=== PATIENT | male | born 1980 | race African-American/Black ===

== ENCOUNTER 2016-06-23 18:28 | Emergency (ER) ==
[2016-06-23] MEDS ORDERED: ZOFRAN ODT PO ONE (21:21)
--- NOTE | 2016-06-23 21:38 | PROVIDER DOCUMENTATION ---
HPI-Abdominal Pain/GI Problem - General Chief Complaint: Nausea/Vomiting Stated Complaint: NAUSEA/VOMITING/HEADACHE Time Seen by Provider: 06/23/16 21:21 Allergies/Adverse Reactions: Patient Allergies Allergy/AdvReac Type Severity Reaction Status Date / Time No Known Allergies Allergy Verified 11/16/14 12:47 Home Medications: Home Medication List Medication Instructions Recorded Confirmed Last Taken Type Divalproex Sodium [Depakote] 250 mg PO BID 11/16/14 11/16/14 06/23/16 History Escitalopram Oxalate [Lexapro] 10 mg PO DAILY 11/16/14 11/16/14 06/23/16 History Levetiracetam [Keppra] 1,000 mg PO BID 11/16/14 11/16/14 06/23/16 History Trazodone [Desyrel] 25 mg PO QHS 06/23/16 06/23/16 Unknown History Past History - Adult - PAST MEDICAL HISTORY-ADULT Major Childhood Illnesses: reports: denies history Cardiovascular: reports: denies history Respiratory: reports: denies history Gastrointestinal: reports: denies history Genitourinary: reports: denies history Musculoskeletal: reports: chronic pain (back) Neurological: reports: Seizures/Epilepsy Psychiatric: reports: denies history Endocrine/Immune: reports: denies history - PRIOR SURGERIES/PROCEDURES Surgical/Procedure History: reports: other (pyloric stenosis) - PRIOR HOSPITALIZATIONS Prior Hospitalizations: reports: for similar symptoms - IMMUNIZATION STATUS Childhood Immunizations: UTD Flu Vaccine: See Nurse Assessment - FAMILY HISTORY Family History: reviewed, not pertinent
--- NOTE | 2016-06-23 21:38 | PROVIDER DOCUMENTATION ---
HPI-Abdominal Pain/GI Problem - General Source: patient - History of Present Illness-ABD Nature of Presenting Problems: 35 year old M presents to the ED with a cc of epigastric ABD pain, nausea, and vomiting. PT states that it has been intermittent. PT states that he has been having shoulder pain and shortness of breath. PT states that he woke up weak and with a headache. PT believes he may have had a seizure last night during his sleep. Abdominal Pain Onset Location: reports: epigastric Pain Radiation: reports: shoulder, chest Quality of Pain: reports: burning Severity in ED: reports: mild Onset/Duration: reports: this morning Timing: reports: still present Activities at Onset: reports: none Associated Symptoms: reports: diarrhea, headaches, nausea, shortness of breath, vomiting, weakness Dark Stools Present?: reports: none noticed Rectal Bleeding: reports: none # of Diarrhea Episodes: 4 # of Vomiting Episodes: 6 Bruising or Bleeding Gums?: No Similar Symptoms Previously?: No Recently seen or treated by another doctor?: No <Shara Ramírez - Last Filed: 06/23/16 22:47> - General Source: patient <Peace Finn - Last Filed: 06/24/16 00:35> - General Chief Complaint: Nausea/Vomiting Stated Complaint: NAUSEA/VOMITING/HEADACHE Time Seen by Provider: 06/23/16 21:21 Allergies/Adverse Reactions: Patient Allergies Allergy/AdvReac Type Severity Reaction Status Date / Time No Known Allergies Allergy Verified 11/16/14 12:47 Home Medications: Home Medication List Medication Instructions Recorded Confirmed Last Taken Type Divalproex Sodium [Depakote] 250 mg PO BID 11/16/14 11/16/14 06/23/16 History Escitalopram Oxalate [Lexapro] 10 mg PO DAILY 11/16/14 11/16/14 06/23/16 History Levetiracetam [Keppra] 1,000 mg PO BID 11/16/14 11/16/14 06/23/16 History Trazodone [Desyrel] 25 mg PO QHS 06/23/16 06/23/16 Unknown History Dicyclomine [Bentyl] 20 mg PO 4XDAY PRN PRN #20 capsule 06/24/16 Unknown Rx Omeprazole 20 mg PO DAILY #14 capsule. 06/24/16 Unknown Rx Ondansetron [Zofran] 4 mg PO Q6H PRN PRN #20 tablet 06/24/16 Unknown Rx Review of Systems - Adult - REVIEW OF SYSTEMS - ADULT Constitutional: denies: chills, fever Eyes: reports: no symptoms reported Ears, Nose, Mouth & Throat: denies: ear pain, throat pain Cardiovascular: reports: chest pain. denies: palpitations Respiratory: reports: shortness of breath. denies: cough Gastrointestinal: reports: abdominal pain, diarrhea, nausea, vomiting Genitourinary: reports: no symptoms reported Musculoskeletal: reports: no symptoms reported Integumentary: denies: skin sores/ulcer, skin thickening Neurological: reports: headache/migraines. denies: dizziness/vertigo Psychiatric: reports: no symptoms reported Endocrine: reports: no symptoms reported Hematologic/Lymphatic: reports: no symptoms reported Allergic/Immunologic: reports: no symptoms reported All Other Systems: Reviewed and Negative <Shara Ramírez - Last Filed: 06/23/16 22:47> Past History - Adult - PAST MEDICAL HISTORY-ADULT Review of Records: reports: Nursing Assessment Review, Medications Reviewed Major Childhood Illnesses: reports: denies history Musculoskeletal: reports: chronic pain Neurological: reports: Seizures/Epilepsy - PRIOR SURGERIES/PROCEDURES Surgical/Procedure History: reports: other (pyloric stenosis) - IMMUNIZATION STATUS Childhood Immunizations: See Nurse Assessment Flu Vaccine: See Nurse Assessment - SOCIAL HISTORY Smoking: cigarettes, less than 1 pack/day Provider spent 3-5 mins advising pt. on dangers of tobacco.: Discussed manners to quit use, and f/u contacts for add'l counseling. Substance Use: marijuana Alcohol Use Frequency: never <Shara Ramírez - Last Filed: 06/23/16 22:47> - PAST MEDICAL HISTORY-ADULT Major Childhood Illnesses: reports: denies history Cardiovascular: reports: denies history Respiratory: reports: denies history Gastrointestinal: reports: denies history Genitourinary: reports: denies history Musculoskeletal: reports: chronic pain (back) Neurological: reports: Seizures/Epilepsy Psychiatric: reports: denies history Endocrine/Immune: reports: denies history - PRIOR SURGERIES/PROCEDURES Surgical/Procedure History: reports: other (pyloric stenosis) - PRIOR HOSPITALIZATIONS Prior Hospitalizations: reports: for similar symptoms - IMMUNIZATION STATUS Childhood Immunizations: UTD Flu Vaccine: See Nurse Assessment - FAMILY HISTORY Family History: reviewed, not pertinent <Peace Finn - Last Filed: 06/24/16 00:35> Physical Exam-General - PHYSICAL EXAM-ADULT Initial Vital Signs Reviewed: Yes - CONSTITUTIONAL General Appearance: appears well, alert, no apparent distress - RESPIRATORY Respiratory: chest non-tender, lungs clear, normal breath sounds - CARDIOVASCULAR Cardiovascular: normal peripheral pulses, regular rate, rhythm, no edema - GASTROINTESTINAL (ABDOMEN) Abdominal Exam: normal bowel sounds, non tender, soft - MUSCULOSKELETAL Extremity: normal inspection - SKIN Integumentary: normal color, normal turgor, warm/dry - PSYCHIATRIC Psych/Mental Status: normal mood/affect, normal thought content, normal thought process, oriented x 3 <Shara Ramírez - Last Filed: 06/23/16 22:47> Progress - EKG 1 Time of EKG reading by physician:: 22:03 EKG Read and Signed by:: Dale Casillas EKG Interpretation (*Must complete 3 of following elements*): Normal Rate: 88 Rhythm: NSR [place]: normal <Shara Ramírez - Last Filed: 06/23/16 22:47> - REASSESSMENT Reassessment #1 Time Reassessed: 23:21 (No further vomiting in ER. Patient feeling some better after medication.) Status: improving Reassessment #2 Time Reassessed: 00:33 (Patient continues to feel better. Sleeping comfortably and easily aroused from sleep. No further vomiting or diarrhea. Discussed lab abnormalities with Dr. Casillas. Will discharge home with symptomatic treatment. Strict return precautions given to return to ER if unable to tolerate PO or new/ worsening symptoms occur.) - XRAY 1 XRAY Study: Chest, Abdomen XRAY Interpretation: nad <Peace Finn - Last Filed: 06/24/16 00:35> Departure <Shara Ramírez - Last Filed: 06/23/16 22:47> - Departure Time of Disposition Order: 00:31 Certified Medical Emergency: Emergent <Peace Finn - Last Filed: 06/24/16 00:35> - Departure DIAGNOSIS: Nausea vomiting and diarrhea Disposition: HOME 01 Condition: Good Additional Instructions: ED Follow Up Instructions: You have been treated by a care provider in the Emergency Department. These instructions are being provided to you so you can have an understanding of how to care for yourself upon discharge. Upon discharge from the Emergency Department, you are responsible for making arrangements for follow-up care by a physician of your choice. Take all prescribed medications as directed. Return to the Emergency Department immediately for any new or worsening symptoms. You may call the Physician Referral phone number at [phone] to obtain a list of Physicians who are taking new patients. Prescriptions: Dicyclomine [Bentyl] 20 mg PO 4XDAY PRN PRN #20 capsule PRN Reason: Cramps Omeprazole 20 mg PO DAILY #14 capsule. Ondansetron [Zofran] 4 mg PO Q6H PRN PRN #20 tablet PRN Reason: Nausea Attestation - Scribe Verification/Attestation Scribe:: Shara Ramírez Acting as Scribe for:: Peace Finn Scribe documention review:: This chart was documented by a scribe and accurately reflects the service the provider performed and the decisions made by the provider. <Shara Ramírez - Last Filed: 06/23/16 22:47> Physician Attestation - Physician Attestation I, the provider, attest to the following statement:: Peace Finn Physician documentation Attestation:: This documentation recorded by the scribe accurately reflects the service I personally performed and the decisions made by me. <Shara Ramírez - Last Filed: 06/23/16 22:47>
[2016-06-23] MEDS ORDERED: G.I. COCKTAIL PO ONE (21:45)
[2016-06-23] MEDS ORDERED: NS 1,000 ML IV ONE (21:45)
[2016-06-23] MEDS ORDERED: SODIUM CHLORIDE 0.9% INJ ONE (21:46)
[2016-06-23] MEDS ORDERED: PROTONIX IV ONE (21:46)
[2016-06-23 21:47] LABS: MANUAL DIFF NEEDED? NO
[2016-06-23 21:56] LABS: BASO% 0.2 % (0.0-0.8); EOS# 0.14 X1000 (0.0-0.7); EOS% 1.2 % (0.0-10.0); HEMATOCRIT 47.9 % (42.0-52.0); HEMOGLOBIN 16.7 g/dL (14.0-18.0); IMM GRAN# 0.02 X1000 (0.0-0.04); IMM GRAN% 0.2 % (0.0-0.5); LYMPH% 29.9 % (20.5-51.1); MCH 31.7 PG (27-31); MCHC 34.9 g/dL (33-37); MCV 91.1 FL (81-99); MONO# 1.26 X1000 (0.11-0.59); MONO% 11.1 % (1.7-9.3); MPV 9.3 FL (7.4-10.4); NEUT% 57.4 % (42.2-75.2); PLT 353 X1000 (130-400); RBC 5.26 XMIL (4.7-6.1)
[2016-06-23] MEDS ORDERED: PROTONIX ONE (22:00)
[2016-06-23 22:20] LABS: ALBUMIN 4.2 g/dL (3.5-5.0); CALCIUM 9.6 mg/dL (8.8-10.2); TOTAL BILIRUBIN 0.5 mg/dL (0.20-1.00); TOTAL PROTEIN 6.9 g/dL (6.3-8.3)
[2016-06-23 22:58] LABS: URINE SOURCE CLEAN CATCH
[2016-06-23 23:20] LABS: BILIRUBIN URINE NEGATIVE (NEGATIVE); BLOOD URINE 1+ (NEGATIVE); CLARITY SL. CLOUDY (CLEAR); COLOR YELLOW; GLUCOSE URINE NEGATIVE (NEGATIVE); LEUKOCYTES URINE TRACE (NEGATIVE); NITRITE URINE NEGATIVE (NEGATIVE); PROTEIN URINE 1+(30 mg/dL) mg/dL (NEGATIVE); SP GRAVITY URINE 1.025; UROBILINOGEN URINE 4+(12 mg/dL)
[2016-06-23 23:30] LABS: URINE CULTURE PL NEEDED? YES; URINE EPITHELIAL CELLS <10 /HPF (<10); URINE RBC <10 /HPF (<10); URINE WBC <10 /HPF (<10)
[2016-06-24 00:59] VITALS: BP 108/71
--- NOTE | 2016-06-24 05:43 | EKG Report ---
Test Performed on : 06/23/2016 10:03:14 PM Test Reason : cp Blood Pressure : / mmHG Vent. Rate : 088 BPM Atrial Rate : 088 BPM P-R Int : 154 ms QRS Dur : 082 ms QT Int : 368 ms P-R-T Axes : 069 066 044 degrees QTc Int : 445 ms Normal sinus rhythm. Normal ECG When compared with ECG of 23-SEP-2014 02:25, Vent. rate has increased BY 35 BPM Unconfirmed Result
--- NOTE | 2016-06-24 08:28 | Diag Imaging Result Document ---
PROCEDURE NAME: FLAT/UPRIGHT ABD/1 VIEW CHEST - 06/23/2016 FLAT AND UPRIGHT ABDOMEN: FINDINGS: There is a nonspecific bowel gas pattern with a fair amount of stool in the right colon. There is no evidence of gastric or small bowel dilatation and no evidence of organomegaly or mass is present. IMPRESSION: Nonspecific abdomen. PA CHEST: FINDINGS: There are some granulomatous nodes in the left hilum. The heart size and pulmonary vascularity are within normal limits. The lungs are essentially clear and unchanged since 04/05/2012. IMPRESSION: No acute disease.
== END 2016-06-24 00:58 | disposition home or self-care (01) ==
LOC: P.ED 18:28
DX: R11.2 Nausea with vomiting, unspecified (principal); R19.7 Diarrhea, unspecified; R10.13 Epigastric pain; M25.519 Pain in unspecified shoulder; R06.02 Shortness of breath; R51 Headache; R53.1 Weakness; R07.9 Chest pain, unspecified; G89.29 Other chronic pain; M54.9 Dorsalgia, unspecified; R56.9 Unspecified convulsions; F17.210 Nicotine dependence, cigarettes, uncomplicated; Z79.899 Other long term (current) drug therapy; Z71.6 Tobacco abuse counseling
CPT/HCPCS: 74022; 80053; 81001; 82550; 83690; 84484; 85025; 87088; 93005; 96361; 96374; C9113; J7030; S0164

== ENCOUNTER 2016-10-19 05:38 | Inpatient (IN) ==
[2016-10-19] MEDS ORDERED: VALIUM ONE (06:17)
[2016-10-19] MEDS ORDERED: KEFZOL 2 GM/D5W 2 GM/50 ML IVPB ONE (06:17)
[2016-10-19] MEDS ORDERED: LR 1,000 ML ONE ×2 (06:17→09:24)
[2016-10-19] MEDS ORDERED: PEPCID ONE (06:23)
[2016-10-19] MEDS ORDERED: REGLAN ONE (06:23)
[2016-10-19] MEDS ORDERED: DIPRIVAN 1% ONE (06:37)
[2016-10-19] MEDS ORDERED: QUELICIN (DOSE) ONE (06:38)
[2016-10-19] MEDS ORDERED: NORCURON ONE (06:38)
[2016-10-19] MEDS ORDERED: SODIUM CHLORIDE 0.9% 10 ML ONE (06:38)
[2016-10-19] MEDS ORDERED: XYLOCAINE-MPF 2% ONE (06:38)
[2016-10-19] MEDS ORDERED: VERSED ONE (07:13)
[2016-10-19] MEDS ORDERED: DECADRON ONE (07:35)
[2016-10-19] MEDS ORDERED: ZOFRAN ONE (07:35)
[2016-10-19] MEDS ORDERED: FENTANYL ONE ×2 (07:36→08:55)
[2016-10-19 08:19] LABS: URINE MICRO REVIEW NEEDED? NO; URINE SOURCE CATH
[2016-10-19 08:23] LABS: BILIRUBIN URINE NEGATIVE (NEGATIVE); BLOOD URINE SMALL (NEGATIVE); COLOR YELLOW; GLUCOSE URINE NEGATIVE (NEGATIVE); LEUKOCYTES URINE TRACE (NEGATIVE); NITRITE URINE NEGATIVE (NEGATIVE); PH URINE 5.5; PROTEIN URINE TRACE mg/dL (NEGATIVE); SP GRAVITY URINE 1.025; TURBIDITY URINE CLEAR (CLEAR); UR EPITHELIAL CELLS <10 /HPF (<10); URINE BACTERIA NEGATIVE /HPF; URINE RBC <10 /HPF (<10); URINE WBC <10 /HPF (<10); UROBILINOGEN URINE NORMAL (NORMAL)
[2016-10-19] MEDS ORDERED: XYLOCAINE 1% ONE (08:26)
[2016-10-19] MEDS ORDERED: MARCAINE 0.25% PF/EPI 1:200,000 ONE (08:27)
[2016-10-19] MEDS ORDERED: NEOSTIGMINE ONE (08:42)
[2016-10-19] MEDS ORDERED: ROBINUL ONE (08:42)
[2016-10-19] MEDS: DILAUDID ONE ×3 (09:09→09:19)
[2016-10-19] MEDS ORDERED: DILAUDID ONE (09:42)
[2016-10-19] MEDS ORDERED: OFIRMEV 1000 MG/ISOTONIC SOLN 1,000 MG/100 ML BOTTLE ONE (09:42)
--- NOTE | 2016-10-19 10:02 | OPERATIVE NOTE ---
PROCEDURE DATE: 10/19/2016 PREOPERATIVE DIAGNOSIS: Peripancreatic mass. POSTOPERATIVE DIAGNOSIS: Peripancreatic mass. PROCEDURE PERFORMED: Exploratory laparotomy with resection of lesser sac mass. COMPLICATIONS: None. ESTIMATED BLOOD LOSS: 50 mL. ASSISTANTS: Dr. Mcdaniel was present from the skin incision to skin closure, retraction identification of abnormal anatomy, and resection of the mass. INDICATION: A 35-year-old male, who presented with epigastric abdominal pain, early satiety, nausea. CT scan showed multilobular cystic mass abutting the pancreas in the lesser sac. EUS confirmed this. Resection was indicated for palliative symptoms and diagnosis and treatment of this lesion. OPERATIVE FINDINGS: There is a multilobular cystic mass with septations abutting the pancreas, but separate from the pancreas extending through the lesser sac and was visualized through the lesser omentum. OPERATIVE NOTE: Risks, benefits, alternatives discussed with the patient. He consented to the procedure. He was seen preoperatively and the procedure performed was confirmed. He was taken to the operating room, placed supine position, general anesthesia induced without complication. All bony prominence padded. Arms were tucked. NG tube and [place] catheter was placed. The abdomen is prepped with chlorhexidine solution and draped in the usual fashion. After a time-out was performed, a left upper quadrant subcostal incision was made, carried down through the subcutaneous tissue down to the level of the fascia. The muscle was divided. The peritoneum was elevated and entered in a controlled fashion. After this, we inspected the abdomen. [place] the liver; there are no lesions here. There is no evidence of metastatic disease. I divided the falciform ligament with vicryl suture. We placed upper hand retractor. Then we entered the lesser sac the greater omentum off the transverse colon, and we did this widely to obtain good exposure. After this we realized that this cystic lesion easily from the pancreas and extended up to and was more adherent to the lesser curve and the lesser omentum of the stomach. As such, we placed the stomach back in neutral position. We then opened the lesser sac through the lesser omentum and circumferentially dissected out the mass using a combination of electrocautery and the LigaSure device. We did this successfully without rupturing the lesion. There are some feeding veins that were divided. No named vessels of the stomach required division here. Resected this mass in its entirety. We passed it off the field. We irrigated the wound, confirmed hemostasis. Placed omentum in the colon back in appropriate position. We removed the retractor system. We then closed the posterior fascia using a running #1 looped PDS. First we closed the posterior fascia and then transitioned to this anterior fascia and closed this. Irrigated the superficial wound, closed the skin with surgical clips. Tolerated procedure well with no identified complication. Counts correct x2. He was awoken and transferred to PACU in good condition. Attempted to reach family , but they are unavailable. cc: Deven Barr MD [facility]
[2016-10-19] MEDS ORDERED: ZOFRAN IV PRN (10:32)
[2016-10-19] MEDS ORDERED: SODIUM CHLORIDE 0.9% INJ SCH (10:32)
[2016-10-19] MEDS ORDERED: PROTONIX IV SCH (10:32)
[2016-10-19] MEDS: LEXAPRO PO SCH (11:18)
[2016-10-19] MEDS: DEPAKOTE PO SCH ×2 (11:18→21:15)
[2016-10-19] MEDS: LR 1,000 ML IV SCH ×2 (11:18→17:42)
[2016-10-19] MEDS: REGLAN IV SCH ×4 (11:18→23:11)
[2016-10-19] MEDS: KEPPRA PO SCH ×2 (11:18→21:14)
[2016-10-19] MEDS: PERIDEX MT SCH ×2 (11:19→23:11)
[2016-10-19] MEDS: DILAUDID IV PRN ×3 (14:38→21:13)
[2016-10-19] MEDS: OFIRMEV 1000 MG/ISOTONIC SOLN 1,000 MG/100 ML BOTTLE IV SCH ×2 (16:09→21:14)
[2016-10-19] MEDS: DESYREL PO SCH (21:15)
[2016-10-20] MEDS: LR 1,000 ML IV SCH ×5 (00:30→17:15)
[2016-10-20] MEDS: DILAUDID IV PRN ×3 (02:34→13:52)
[2016-10-20] MEDS: REGLAN IV SCH ×4 (04:23→22:34)
[2016-10-20] MEDS: OFIRMEV 1000 MG/ISOTONIC SOLN 1,000 MG/100 ML BOTTLE IV SCH ×4 (04:23→22:36)
[2016-10-20 05:59] LABS: MANUAL DIFF NEEDED? NO
[2016-10-20 06:11] LABS: BASO% 0.1 % (0.0-0.8); EOS# 0.02 X1000 (0.0-0.7); EOS% 0.1 % (0.0-10.0); HEMATOCRIT 45.9 % (42.0-52.0); HEMOGLOBIN 16.4 g/dL (14.0-18.0); IMM GRAN# 0.03 X1000 (0.0-0.04); IMM GRAN% 0.2 % (0.0-0.5); LYMPH# 2.32 X1000 (1.2-3.4); LYMPH% 15.6 % (20.5-51.1); MCH 32.2 PG (27-31); MCHC 35.7 g/dL (33-37); MONO# 1.35 X1000 (0.11-0.59); MONO% 9.1 % (1.7-9.3); MPV 9.7 FL (7.4-10.4); NEUT% 74.9 % (42.2-75.2); PLT 331 X1000 (130-400)
[2016-10-20 06:44] LABS: AGAP 9; BUN 7 mg/dL (8-22); CALCIUM 8.1 mg/dL (8.8-10.2); CHLORIDE 102 mmol/L (98-107); COSMO 270; MAGNESIUM 1.9 mg/dL (1.5-2.7); POTASSIUM 4.1 mmol/L (3.5-5.1); SODIUM 137 mmol/L (136-145); TCO2 26 mmol/L (25-35)
--- NOTE | 2016-10-20 09:06 | PROGRESS NOTE ---
DATE: 10/20/2016 SUBJECTIVE: Feels well. He has had a little bit of pain and nausea. He was voiding after his [place] was out. OBJECTIVE: Vital Signs: No fevers. No tachycardia. Blood pressure 121/65, oxygen saturations high 90s on 2 L. General: He is alert, in no acute distress. Abdomen: Soft, appropriately tender. Incision is clean, dry, and intact. NG tube has got minimal output. Laboratory Data: Reviewed his labs: White count is 14, hematocrit 45. Creatinine 0.8. ASSESSMENT AND PLAN: This is a 35-year-old male who status post resection of a peripancreatic mass. He is doing well. We will remove his NG tube. [place] is already out and he is voiding. Increase his mobilization today. We will advance his diet with return of bowel function. Stick to ice chips now. He is on Lovenox and proton pump inhibitor. cc: Deven Barr MD
[2016-10-20] MEDS: PERIDEX MT SCH ×2 (09:37→22:34)
[2016-10-20] MEDS: KEPPRA PO SCH ×2 (09:38→22:34)
[2016-10-20] MEDS: LOVENOX SUBQ SCH (09:38)
[2016-10-20] MEDS: DEPAKOTE PO SCH ×2 (09:38→22:35)
[2016-10-20] MEDS: LEXAPRO PO SCH (09:38)
[2016-10-20] MEDS: NORCO-7.5 PO PRN ×2 (10:09→16:23)
[2016-10-20] MEDS: ROBAXIN 500 MG in NS 50 ML IV SCH ×3 (11:06→22:36)
[2016-10-20] MEDS ORDERED: NEXIUM IV SCH (21:00)
[2016-10-20] MEDS: DESYREL PO SCH (22:34)
[2016-10-21] MEDS: LR 1,000 ML IV SCH ×3 (02:31→09:40)
[2016-10-21] MEDS: OFIRMEV 1000 MG/ISOTONIC SOLN 1,000 MG/100 ML BOTTLE IV SCH ×3 (04:09→15:55)
[2016-10-21] MEDS: REGLAN IV SCH ×3 (04:09→15:56)
[2016-10-21] MEDS: ROBAXIN 500 MG in NS 50 ML IV SCH ×2 (04:09→10:17)
[2016-10-21] MEDS: LOVENOX SUBQ SCH (08:20)
[2016-10-21] MEDS: PERIDEX MT SCH (08:20)
[2016-10-21] MEDS: LEXAPRO PO SCH (08:20)
[2016-10-21] MEDS: KEPPRA PO SCH (08:20)
[2016-10-21] MEDS: DEPAKOTE PO SCH (08:20)
[2016-10-21] MEDS: NORCO-7.5 PO PRN (08:21)
[2016-10-21 11:15] VITALS: BP 125/70
[2016-10-21] MEDS ORDERED: SALINE LOCK IV FLUID XX ONE (11:56)
--- NOTE | 2016-10-22 05:31 | DISCHARGE SUMMARY ---
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 He underwent a resection of this on October 19. For details, please see dictated operative note. Postoperatively, he was admit to my service. An NG tube and [place] catheter were removed on day 1. His diet was gradually advanced over the next 24 hours. He tolerated this well. He had return of bowel function. He was voiding, walking and pain control with his oral medicines alone and he was felt safe for discharge home. DISCHARGE INSTRUCTIONS: He will return to my office in 7-10 days to remove the tad. He is to remove his dressing tomorrow and begin showering daily but not submerge his wound. He is not to lift anything heavier than 10 pounds. MEDICATIONS: He can continue his home medications. I gave him a prescription for [place], Colace, and Zofran if needed. DIET: Continue with a GI soft diet for the next several weeks to months with small frequent meals and gradually begin advancing this. DISPOSITION: Home to self-care. DISCHARGE CONDITION: Good. cc: Deven Barr MD
== END 2016-10-21 16:21 | disposition home or self-care (01) ==
LOC: SURHOLD 05:38 → 4N 10:14
PROVIDERS: ADMIT Surgery; ATTEND Surgery

== ENCOUNTER 2016-12-11 15:19 | Inpatient (IN) ==
[2016-12-11] MEDS ORDERED: NS 1,000 ML IV ONE (15:54)
[2016-12-11] MEDS ORDERED: ZOFRAN IV ONE (15:54)
[2016-12-11 16:47] LABS: MANUAL DIFF NEEDED? NO
[2016-12-11 16:52] LABS: BASO% 0.2 % (0.0-0.8); EOS% 1.2 % (0.0-10.0); HEMATOCRIT 46.4 % (42.0-52.0); HEMOGLOBIN 16.5 g/dL (14.0-18.0); LYMPH# 2.11 X1000 (1.2-3.4); MCH 31.4 PG (27-31); MCHC 35.6 g/dL (33-37); MCV 88.4 FL (81-99); MONO% 9.9 % (1.7-9.3); MPV 9.5 FL (7.4-10.4); NEUT% 62.7 % (42.2-75.2); PLT 376 X1000 (130-400); RBC 5.25 XMIL (4.7-6.1)
--- NOTE | 2016-12-11 17:11 | PROVIDER DOCUMENTATION ---
HPI-Abdominal Pain/GI Problem - General Chief Complaint: Abdominal Pain Stated Complaint: ABD PAIN/VOMITING Time Seen by Provider: 12/11/16 15:42 Allergies/Adverse Reactions: Patient Allergies Allergy/AdvReac Type Severity Reaction Status Date / Time No Known Allergies Allergy Verified 10/19/16 06:21 Home Medications: Home Medication List Medication Instructions Recorded Confirmed Last Taken Type Divalproex Sodium [Depakote] 250 mg PO BID 11/16/14 10/19/16 1 Month Ago History Escitalopram Oxalate [Lexapro] 10 mg PO DAILY 11/16/14 10/19/16 06/23/16 History Levetiracetam [Keppra] 1,000 mg PO BID 11/16/14 10/19/16 1 Month Ago History Trazodone [Desyrel] 25 mg PO QHS 06/23/16 10/19/16 Unknown History Docusate Sodium [Colace] 100 mg PO BID #60 capsule 10/21/16 Unknown Rx Hydrocodone/Acetaminophen [[place] 1 each PO Q6H PRN PRN #30 tablet 10/21/16 Unknown Rx 7.5-325 Tablet] Ondansetron HCl [Zofran] 4 mg PO Q4H PRN PRN #10 tablet 10/21/16 Unknown Rx - History of Present Illness-ABD Nature of Presenting Problems: complains of epigastric pain, n/v for two weeks. Had peripancreatic cyst removed by Dr. Barr in October. No fever, back pain, fever, cough, cp, dyspnea. Abdominal Pain Onset Location: reports: LUQ, epigastric Pain Radiation: reports: no radiation Quality of Pain: reports: aching Severity in ED: reports: moderate Onset/Duration: reports: other Timing: reports: getting worse Activities at Onset: reports: none Exposure to sick contacts?: No Modifying Factors: improves with: nothing Associated Symptoms: reports: fever/chills, nausea, vomiting. denies: anxiety, chest pain, constipation, cough, diarrhea, fatigue, headaches, loss of appetite , shortness of breath, sensory/motor loss, trouble walking Last BM: unsure Dark Stools Present?: reports: none noticed Rectal Bleeding: reports: none Rectal Pain: reports: none Emesis Description: reports: clear Bruising or Bleeding Gums?: No Similar Symptoms Previously?: No Recently seen or treated by another doctor?: No Review of Systems - Adult - REVIEW OF SYSTEMS - ADULT Constitutional: reports: no symptoms reported Eyes: reports: no symptoms reported Ears, Nose, Mouth & Throat: reports: no symptoms reported Cardiovascular: reports: no symptoms reported Respiratory: reports: no symptoms reported Gastrointestinal: reports: see HPI Genitourinary: reports: no symptoms reported Musculoskeletal: reports: no symptoms reported Integumentary: reports: no symptoms reported Neurological: reports: no symptoms reported Psychiatric: reports: no symptoms reported Endocrine: reports: no symptoms reported Hematologic/Lymphatic: reports: no symptoms reported Allergic/Immunologic: reports: no symptoms reported All Other Systems: Reviewed and Negative Past History - Adult - PAST MEDICAL HISTORY-ADULT Review of Records: reports: Old Records Reviewed, Nursing Assessment Review, Medications Reviewed, Social history reviewed & non-contributory. Major Childhood Illnesses: reports: denies history Cardiovascular: reports: denies history Respiratory: reports: denies history Gastrointestinal: reports: other Obstetrical/Gynecological: reports: denies history Genitourinary: reports: denies history Musculoskeletal: reports: chronic pain Neurological: reports: Seizures/Epilepsy Psychiatric: reports: denies history Endocrine/Immune: reports: denies history Other Conditions: reports: denies history - PRIOR SURGERIES/PROCEDURES Surgical/Procedure History: reports: other - PRIOR HOSPITALIZATIONS Prior Hospitalizations: reports: for similar symptoms - IMMUNIZATION STATUS Childhood Immunizations: UTD Flu Vaccine: See Nurse Assessment - FAMILY HISTORY Family History: reviewed, not pertinent - SOCIAL HISTORY Smoking: denies Substance Use: none/never Alcohol Use Frequency: never Living Situation: family Physical Exam-General - PHYSICAL EXAM-ADULT Initial Vital Signs Reviewed: Yes - CONSTITUTIONAL General Appearance: appears well, alert, no apparent distress - EYES Eyes: PERRL/EOMI, pink conjunctivae - HEAD, EARS, NOSE, MOUTH & THROAT HENMT: normocephalic/atraumatic - NECK Neck: supple - RESPIRATORY Respiratory: lungs clear, normal breath sounds - CARDIOVASCULAR Cardiovascular: normal peripheral pulses, regular rate, rhythm - GASTROINTESTINAL (ABDOMEN) Abdominal Exam: soft, tenderness (epigastric/LUQ s guarding.) - MUSCULOSKELETAL Back Exam: normal inspection Extremity: non-tender, normal gait. negative: calf tenderness - SKIN Integumentary: normal color, normal turgor, warm/dry - NEUROLOGIC Neurologic: grossly normal - PSYCHIATRIC Psych/Mental Status: normal mood/affect, oriented x 3 Progress - PLAN OF CARE/RESULTS Progress/Plan/Lab Results: Vital Signs - 8 hr 12/11/16 15:34 Pulse Rate 65 Respiratory Rate 16 Blood Pressure 127/62 O2 Sat by Pulse Oximetry 100 Laboratory Results - last 24 hr 12/11/16 15:29 WBC 8.11 RBC 5.25 Hgb 16.5 Hct 46.4 MCV 88.4 MCH 31.4 H MCHC 35.6 RDW Std Deviation 13.0 Plt Count 376 MPV 9.5 Immature Gran % (Auto) 0.0 Neut % (Auto) 62.7 Lymph % (Auto) 26.0 [place] % (Auto) 9.9 H Eos % (Auto) 1.2 Baso % (Auto) 0.2 Immature Gran # (Auto) 0.00 Neut # (Auto) 5.08 Lymph # (Auto) 2.11 [place] # (Auto) 0.80 H Eos # (Auto) 0.10 Baso # (Auto) 0.02 Orders Category Date Time Status Saline Loc NOW Care 12/11/16 15:[address] ABD/PELVIS W/PO AND IV CON [CT] Stat Exams 12/11/16 16:01 Ordered AMYLASE [CHEM] Stat Lab 12/11/16 15:29 Received CBC WITH ELECTRONIC DIFF [HEME] Stat Lab 12/11/16 15:29 Completed COMPREHENSIVE METABOLIC PANEL [CHEM] Stat Lab 12/11/16 15:29 Received LIPASE [CHEM] Stat Lab 12/11/16 15:29 Received URINALYSIS-1 [URINALYSIS] Stat Lab 12/11/16 16:53 Ordered 0.9% Sodium Chloride Inj [Ns] 1,000 ml Med 12/11/16 15:54 Discontinued IV 999 mls/hr Ondansetron [Zofran] Med 12/11/16 15:54 Discontinued 4 mg IV NOW ONE Result Diagrams: 12/11/16 15:29 12/11/16 15:29 - CT/MRI 1 CT Study: Abdomen, Pelvis Impression: See EMR Report (NAF) - CONSULTS/PCP/HOSPITALIST Notification #1 *Consult/PCP/Hospitalist*: Dr. Barr Time Discussed: 18:15 Consult Disposition: other (Pt seen and examined by Dr. Barr in ED. He wants patient admitted. Will admit to his service.) Departure - Departure Date of Disposition Decision: 12/11/16 Time of Disposition Decision: 18:36 DIAGNOSIS: Abdominal pain Qualifiers: Abdominal location: unspecified location Qualified Code(s): R10.9 - Unspecified abdominal pain Nausea & vomiting Qualifiers: Vomiting type: unspecified Vomiting Intractability: non-intractable Qualified Code(s): R11.2 - Nausea with vomiting, unspecified Disposition: ADMITTED INPATIENT 09 Certified Medical Emergency: Emergent Condition: Stable Referrals and Follow-Ups: None,PCP [Primary Care Provider] - - Critical Care Note This patient required my direct & personal management of CC.: No Attestation - Physician/ DORYS Attestation Patient care was provided by Advanced Practice Provider:: Yes Advanced Practice Provider:: Efren Gore Advanced Practice Provider documentation review:: The Mid-level provider documentation, treatment plan and medical decision making was reviewed by the physician who agrees with all treatment and medical decision making by the MLP. The physician spent face to face time with patient:: No Advanced Practice Provider documentation review:: Supervising physician onsite and consulted in the evaluation and care of this patient. The physician did not have a face to face encounter with the patient.
[2016-12-11 17:12] LABS: URINE SOURCE VOIDED
[2016-12-11 17:13] LABS: URINE MICRO REVIEW NEEDED? NO
[2016-12-11 17:13] LABS: AGAP 11; ALBUMIN 3.8 g/dL (3.5-5.0); ALKALINE PHOSPHATASE 37 U/L (32-122); AMYLASE 108 U/L (20-200); BUN 7 mg/dL (8-22); CALCIUM 8.7 mg/dL (8.8-10.2); CHLORIDE 103 mmol/L (98-107); COSMO 277; GOT 14 U/L (10-34); GPT 8 U/L (10-44); LIPASE 38 U/L (13-60); POTASSIUM 3.7 mmol/L (3.5-5.1); SODIUM 140 mmol/L (136-145); TCO2 26 mmol/L (25-35); TOTAL BILIRUBIN 0.74 mg/dL (0.20-1.00); TOTAL PROTEIN 6.3 g/dL (6.3-8.3)
[2016-12-11 17:17] LABS: BILIRUBIN URINE NEGATIVE (NEGATIVE); BLOOD URINE NEGATIVE (NEGATIVE); COLOR YELLOW; GLUCOSE URINE NEGATIVE (NEGATIVE); LEUKOCYTES URINE NEGATIVE (NEGATIVE); NITRITE URINE NEGATIVE (NEGATIVE); PROTEIN URINE TRACE mg/dL (NEGATIVE); SP GRAVITY URINE 1.027; TURBIDITY URINE CLEAR (CLEAR); UROBILINOGEN URINE 3 mg/dL (NORMAL)
[2016-12-11 17:18] LABS: UR EPITHELIAL CELLS <10 /HPF (<10); URINE BACTERIA NEGATIVE /HPF; URINE RBC <10 /HPF (<10)
--- NOTE | 2016-12-11 17:53 | Diag Imaging Result Doc PS360 ---
CT ABD/PELVIS W/PO AND IV CON - 12/11/2016 INDICATION: abd pain, recent peripancreatic surgery TECHNIQUE: A CT dose reduction protocol was used. COMPARISON: 08/16/2016 FINDINGS: The pancreatic tail cyst is no longer present. No free air or free fluid. No bowel obstruction or inflammation. The solid abdominal organs appear normal. Urinary bladder, prostate, and rectum are normal. The lung bases are clear. Bones are intact. IMPRESSION: No acute disease or complication. Electronically signed by Guero Mao 12/11/2016 5:51 PM
--- NOTE | 2016-12-11 19:05 | HISTORY AND PHYSICAL ---
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 His symptoms prior to that were abdominal pain, epigastric and nausea. He got initially better; however, he says over the last couple of weeks, he has had redevelopment of the symptoms. No fevers. Bowel function has been normal. Weight has been stable. MEDICAL HISTORY: He has seizure disorder. PAST SURGICAL HISTORY: 1. He has had an open resection of the lymphatic cyst from the lesser sac of his abdomen. 2. History of pyloric stenosis as an . SOCIAL HISTORY: Occasional tobacco and alcohol, but no heavy use. FAMILY HISTORY: History of cancer, but unclear what. REVIEW OF SYSTEMS: Ten point negative except for what is mentioned HPI. PHYSICAL EXAMINATION: Vital Signs: Temperature is 98.5, pulse in the 60s, blood pressure 127/62, oxygen saturation 100% on room air. General: He is alert, in no acute distress. HEENT: No cervical masses or scleral icterus. Cardiovascular: Normal rate and regular rhythm. Pulmonary: No increased work of breathing on room air. Abdomen: Soft, nontender, nondistended. His left subcostal incision is well healed without evidence of a hernia. Lymphatics: I do not feel any cervical or axillary lymphadenopathy. Musculoskeletal: Normal muscle tone throughout. Integument: Warm and dry without jaundice. Lower extremity exam is without edema and otherwise well perfused. Neurologic: Appropriate affect without any focal deficits. LABS: For the most part unremarkable. White count 8, hematocrit 46, platelets 376,000. Creatinine 0.9, glucose is 95. LFTs are normal. Lipase 38, amylase 105, albumin is 3.8. Urinalysis is negative for nitrites and leukocytes. CT scan of abdomen and pelvis overall unrevealing without any evidence of bowel obstruction or recurrent mass. No free air or free fluid. ASSESSMENT AND PLAN: A 35-year-old male, who has had chronic nausea and epigastric abdominal pain. He did have resection of a large lesser sac mass that was a benign cyst a couple months ago. He has had recurrent symptoms. I think at this point, will admit him. He appears quite uncomfortable and nauseated, for hydration and antiemetics intravenously. Most likely will need EGD in the near future to evaluate for ulcer disease. Does have a history of pyloric stenosis as a child and recent lesser sac operation, it is possible he has some gastroparesis type symptoms here. Will start him on Reglan and Carafate, and PPI in the meantime, and will monitor him. No plans for surgical intervention. Clear liquid diet tonight and will see how he does. cc: Deven Barr MD
[2016-12-11] MEDS ORDERED: PROTONIX IV ONE (19:18)
[2016-12-11] MEDS ORDERED: TYLENOL PO PRN (19:18)
[2016-12-11] MEDS ORDERED: ZOFRAN IV PRN (19:18)
[2016-12-11] MEDS ORDERED: SODIUM CHLORIDE 0.9% INJ ONE (19:18)
[2016-12-11] MEDS ORDERED: LR 1,000 ML IV ONE (19:18)
[2016-12-11] MEDS: CARAFATE LIQUID PO SCH (21:28)
[2016-12-11] MEDS: LOVENOX SUBQ SCH (21:28)
[2016-12-11] MEDS: REGLAN IV SCH (21:28)
[2016-12-11] MEDS: DESYREL PO SCH (21:29)
[2016-12-12] MEDS: REGLAN IV SCH ×4 (01:34→21:59)
[2016-12-12] MEDS: CARAFATE LIQUID PO SCH ×4 (01:35→21:59)
[2016-12-12] MEDS: LEXAPRO PO SCH (09:10)
[2016-12-12] MEDS: MIRALAX PO SCH (12:53)
[2016-12-12] MEDS: LEVAQUIN 500 MG/D5W 500 MG/100 ML IVPB IV SCH (12:54)
[2016-12-12] MEDS: PROTONIX IV SCH (12:55)
[2016-12-12] MEDS: SODIUM CHLORIDE 0.9% INJ SCH (12:55)
[2016-12-12] MEDS ORDERED: GOLYTELY PO ONE (14:00)
--- NOTE | 2016-12-12 17:40 | PROGRESS NOTE ---
DATE: 12/12/2016 SUBJECTIVE: Still feels full and nauseated, no vomiting. OBJECTIVE: Vital signs: No fevers, pulse 45, blood pressure 108/72, oxygen saturation 100% on room air. General: He is alert, no acute distress. Cardiovascular: Normal rate regular rhythm with some bradycardia intermittently. Abdomen: Soft, nontender, nondistended. Integument: Warm, dry without jaundice. LABS: No new labs this morning. ASSESSMENT AND PLAN: 35-year-old male status post resection lymphatic system lesser sac, continues to have some nausea, vomiting and reflux type symptoms, he needs an EGD and asked Dr. Simon to see him today and discuss this option, in the meantime will continue PPI, Reglan for possible gastroparesis type picture, Carafate pending his workup, I do not see any evidence postop complication or obstruction on the CT scan or his labs but will continue to monitor him pending his endoscopic evaluation tomorrow . cc: Deven Barr MD
[2016-12-12] MEDS: LOVENOX SUBQ SCH (18:56)
--- NOTE | 2016-12-12 19:40 | CONSULTATION ---
DATE OF CONSULTATION: 12/12/2016 REASON FOR CONSULTATION: Abdominal pain, nausea, constipation and recent resection of lymphatic cyst from the lesser sac of the abdomen. HISTORY OF PRESENT ILLNESS: Mr. Flores is a 35-year-old male who was admitted on 12/11/2016 with symptoms of abdominal pain, nausea and recent resection of a lymphatic cyst from the lesser sac of the abdomen. The patient has been complaining of abdominal pain going on for many months and he saw Dr. Barr in August this year. He had an EUS done at [facility] by Dr. Torrez which showed evidence of a cyst arising from possible pancreatic region. He got operated on in October [address] Barr and according to the operative report, the cyst was in the lesser sac and was not attached to the pancreas or the stomach and was able to be easily resected and pathology confirmed it as lymphatic cyst. Postoperatively he felt better for a few weeks and then started complaining of abdominal pain in the epigastric region along with bloating, nausea, constipation, and came to the hospital yesterday. He has been on previous MiraLAX in the past. He denies any vomiting blood or passing blood in the stools. He never had a colonoscopy in the past. His last upper scope was an EUS 3 months ago. PAST MEDICAL HISTORY: Seizure disorder and constipation, recent resection of lymphatic cyst from lesser sac. PAST SURGICAL HISTORY: 1. Myotomy of pyloric stenosis as a child. 2. Recent resection of lymphatic cyst from the lesser sac of abdomen in October [address] Barr. SOCIAL HISTORY: He smokes and drinks but has quit drinking recently. He still smokes. He denies illicit drugs. FAMILY HISTORY: Mother with history of peptic ulcer disease. REVIEW OF SYSTEMS: Denies any current fevers, rigors, chills, chest pain, shortness of breath, dyspnea at rest. Denies any genitourinary complaints. Denies history of vomiting or blood in the stools. MEDICATIONS AT HOME: 1. Depakote 250 mg p.o. b.i.d. 2. Keppra 1000 mg p.o. b.i.d. 3. Lexapro 10 mg daily. 4. Trazodone 25 mg at bedtime. ALLERGIES: No known drug allergies. MEDICATIONS IN THE HOSPITAL: Tylenol, Lovenox, Lexapro, Reglan, Zofran, sucralfate, trazodone, Protonix, Bisacodyl, MiraLAX. DIET: On a clear liquid diet. PHYSICAL EXAMINATION: Vital signs: Temperature of 99.3 degrees, pulse of 45 mg , respiratory rate 16, blood pressure 108/72, saturating 100% on room air. Body weight of 179 pounds 9.6 ounces. BMI 26.5 kg. General: Moderately built, lying in bed, in no distress. HEENT: No pallor. No icterus. Pupils equal and reactive to light. Neck: Supple. Chest: Clear Heart: Regular rate and rhythm. Abdomen: Soft, nontender, nondistended. Bowel sounds are present. No guarding or rebound. A healed scar noted in the abdomen. Extremities: No cyanosis, clubbing, edema. Neurologic: Alert, awake, oriented. LABS: Hemoglobin and hematocrit is 16.5 and 46.4. White count of 8.11, platelet count of 376,000. Sodium 140, potassium 3.7, chloride 103, bicarbonate, AG 11, BUN of 7, creatinine 19, glucose of 95, calcium is 8.7, total bilirubin is 0.74, AST 14, ALT 8, alkaline phosphatase 37, total protein 6.2, albumin of 3.8, amylase of 108, lipase of 38. Urine studies showed positive protein, 10-20 white cells. He had imaging of the abdomen and pelvis done on 12/11/2016 which showed the pancreatic tail cyst is no longer present. No free air or free fluid. No bowel obstruction or inflammation. The solid abdominal organs appear normal. Urinary, bladder, prostate, rectum are normal. Lung bases are clear. Bones are intact. IMPRESSION/PLAN: 1. Abdominal pain in the epigastric region/periumbilical region. 2. Nausea. 3. Constipation. 4. Recent infection of large lesser sac lymphatic cyst in October [address] Barr. 5. Possible urinary tract infection. RECOMMENDATIONS: 1. We will check a urine culture. 2. Start him on Levaquin once daily for possible urinary tract infection after urine culture has been collected. 3. We will start him on Protonix once or twice daily. 4. We will start him on Dulcolax and MiraLAX to help with the constipation. 5. We will schedule patient for EGD and colonoscopy tomorrow. In this regard, he will be on a clear liquid diet today and NPO tonight. we will give him GoLYTELY to prepare for colonoscopy. 6. Continue on Reglan, Carafate per the surgical team. 7. Further recommendations pending hospital course. I also counseled patient to quit using alcohol and smoking completely. Discussed the case with Dr. Barr. cc: MD Deven Montero MD MTDD
[2016-12-13] MEDS: CARAFATE LIQUID PO SCH ×4 (01:36→21:24)
[2016-12-13] MEDS: REGLAN IV SCH ×4 (01:36→21:24)
[2016-12-13] MEDS: SODIUM CHLORIDE 0.9% INJ SCH ×2 (01:40→15:09)
[2016-12-13] MEDS: PROTONIX IV SCH ×2 (01:40→15:09)
[2016-12-13] MEDS: DULCOLAX PR SCH (08:19)
[2016-12-13] MEDS: DESYREL PO SCH (08:19)
[2016-12-13] MEDS: MIRALAX PO SCH (08:26)
[2016-12-13] MEDS: LEXAPRO PO SCH (11:59)
[2016-12-13] MEDS ORDERED: DIPRIVAN 1% ONE (13:48)
--- NOTE | 2016-12-13 14:10 | PROGRESS NOTE ---
DATE: 12/13/2016 SUBJECTIVE: He feels better, a little bit, but still nauseated, still having some occasional discomfort. Not really tolerating much in the way of liquids currently. OBJECTIVE: Vital Signs: No fevers. Pulse has been in the 50s. Blood pressure 129/61, oxygen saturation 100% on room air. General: He is alert, in no acute distress. Abdomen: Soft, mildly tender throughout, nondistended. LABS: No new labs this morning. ASSESSMENT AND PLAN: A 35-year-old male with persistent chronic nausea, vomiting, intolerance to oral status post resection of a lesser sac lymphatic cyst. Dr. Simon is planning to scope him today. We will follow up these results. Make further plans going forward. In the meantime, will continue intravenous antiemetics and intravenous hydration, and will continue to follow his progress. cc: Deven Barr MD
[2016-12-13] MEDS ORDERED: FENTANYL ONE (14:18)
--- NOTE | 2016-12-13 14:47 | OPERATIVE NOTE ---
PROCEDURE DATE: 12/13/2016 PROCEDURES: 1. Esophagogastroduodenoscopy. 2. Biopsy. PREOPERATIVE DIAGNOSIS: Persistent nausea. POSTOPERATIVE DIAGNOSIS: Normal exam. DESCRIPTION OF PROCEDURE: After informed consent and adequate intravenous sedation by Anesthesia, the scope introduced via the esophagus, stomach and duodenum. Duodenum normal. Stomach is normal. Antrum biopsied for H. pylori. The scope was withdrawn. The patient tolerated the procedure well, without any immediate complications. cc: MD Deven Boyce MD
[2016-12-13] MEDS ORDERED: GOLYTELY PO ONE (15:00)
[2016-12-13] MEDS: LEVAQUIN 500 MG/D5W 500 MG/100 ML IVPB IV SCH (15:08)
[2016-12-13] MEDS ORDERED: CITRATE OF MAGNESIA PO ONE (22:39)
[2016-12-14] MEDS: SODIUM CHLORIDE 0.9% INJ SCH ×2 (03:16→15:11)
[2016-12-14] MEDS: PROTONIX IV SCH ×2 (03:16→15:11)
[2016-12-14] MEDS: REGLAN IV SCH ×4 (03:16→20:32)
[2016-12-14] MEDS: CARAFATE LIQUID PO SCH ×4 (05:04→20:32)
[2016-12-14] MEDS: DESYREL PO SCH ×2 (05:47→20:32)
[2016-12-14] MEDS: MIRALAX PO SCH ×3 (05:48→22:31)
[2016-12-14] MEDS: DULCOLAX PR SCH ×2 (05:48→22:31)
[2016-12-14] MEDS ORDERED: DIPRIVAN 1% ONE (12:38)
[2016-12-14] MEDS ORDERED: XYLOCAINE-MPF 2% ONE (12:39)
[2016-12-14] MEDS ORDERED: VERSED ONE (13:22)
[2016-12-14] MEDS ORDERED: ROBINUL ONE (13:30)
[2016-12-14] MEDS: LEVAQUIN 500 MG/D5W 500 MG/100 ML IVPB IV SCH (15:10)
--- NOTE | 2016-12-14 16:20 | OPERATIVE NOTE ---
PROCEDURE DATE: 12/14/2016 ADMITTING PHYSICIAN: Dr. Alejandro Barr TITLE PROCEDURE: Ileocolonoscopy with colon polypectomy. PREOPERATIVE DIAGNOSES: 1. Abdominal pain, unexplained. 2. Constipation. 3. Recent lymphatic cyst removal from lesser sac by Dr. Barr in October 2016. 4. Negative esophagogastroduodenoscopy yesterday. POSTOPERATIVE DIAGNOSES: 1. Normal terminal ileum. 2. Stool in the right colon, likely causing constipation. 3. Two small polyps in the sigmoid, status post cold biopsy polypectomy. 4. Internal hemorrhoids on retroflexion. 5. No evidence of any colitis. ESTIMATED BLOOD LOSS: Minimal. COMPLICATIONS: None. ANESTHESIA: Monitored anesthesia care per Anesthesia. SPECIMEN: Sigmoid colon polyp x 2, sent to Surgical Pathology. PROCEDURE: After informed consent, the patient explained the risks, benefits, indications, alternatives for colonoscopy. The patient was brought to the OR, turned in the left lateral position. Rectal exam was performed. Normal rectal tone. No masses were felt. No blood on examining finger. The colonoscope was introduced in the anal verge and was traversed all the way to the terminal ileum, it was normal. No evidence of any colitis or ileitis. The right colon, the cecum, ascending, hepatic flexure and proximal transverse colon had evidence of evidence of thick stool throughout. This was lavaged. There is evidence of 2 small polyps , measuring about 5 mm to 6 mm in the sigmoid colon. These were removed using cold biopsy polypectomy. Internal hemorrhoids, grade 1 to 2, were noted on retroflexion. The air and scope were withdrawn. The patient tolerated the procedure and monitored in the OR in stable condition. RECOMMENDATIONS: 1. The patient will be on MiraLAX 17 g twice daily. 2. We will cut down the dose of narcotics. 3. The patient was started on full-liquid diet, advance as tolerated. 4. The patient follow with us in the 4 weeks after discharge to review the biopsy results. 5. The patient will continue to follow gastroesophageal reflux disease prophylaxis. 6. Further recommendations following hospital course. 7. Also, the patient will need repeat colonoscopy in 5 years. cc: MD Deven Montero MD MTDD
--- NOTE | 2016-12-14 17:22 | PROGRESS NOTE ---
DATE: 12/14/2016 SUBJECTIVE: Feeling a little better. Pain is improved. Still a little nauseated. Had an EGD yesterday that is unrevealing. Plan for colonoscopy today. LABORATORY: Nothing new this morning. ASSESSMENT AND PLAN: A 35-year-old male status post lesser sac and mesenteric cyst excision with persistent abdominal pain, nausea and vomiting. He is undergoing endoscopic evaluation by Dr. Simon. We will continue to follow along. If this is unrevealing, plan for him to maybe go home in the next day or 2. cc: Deven Barr MD [facility] HOSPITALSylvester
[2016-12-14] MEDS: LEXAPRO PO SCH (18:14)
[2016-12-15] MEDS: CARAFATE LIQUID PO SCH ×3 (02:36→15:45)
[2016-12-15] MEDS: PROTONIX IV SCH (05:28)
[2016-12-15] MEDS: SODIUM CHLORIDE 0.9% INJ SCH (05:28)
[2016-12-15] MEDS: REGLAN IV SCH ×3 (05:28→14:05)
[2016-12-15] MEDS: MIRALAX PO SCH (09:09)
[2016-12-15] MEDS: LEXAPRO PO SCH (09:09)
[2016-12-15] MEDS: LEVAQUIN 500 MG/D5W 500 MG/100 ML IVPB IV SCH (12:29)
--- NOTE | 2016-12-15 14:59 | PROGRESS NOTE ---
DATE: 12/15/2016 SUBJECTIVE: Feels better. Occasionally some abdominal discomfort, but the nausea is improving. OBJECTIVE: General: No fevers. No tachycardia. Vital Signs: Blood pressure 111/64. Abdomen: Soft, nontender, nondistended. Integument: Warm, dry. I do not see any jaundice. ASSESSMENT AND PLAN: A 35-year-old male with nausea, vomiting, abdominal pain. He is now status post upper and lower endoscopy that showed some constipation of the right colon, but otherwise unrevealing. I do not see any complication related to surgery. We will continue our supportive care. If he tolerates diet, we may plan on him going home today or tomorrow. cc: Deven Barr MD
[2016-12-15 15:56] VITALS: BP 118/71
--- NOTE | 2016-12-30 07:05 | DISCHARGE SUMMARY ---
ADMISSION DATE: 12/11/2016 DISCHARGE DATE: 12/15/2016 ADMISSION DIAGNOSES: Abdominal pain with nausea and vomiting. DISCHARGE DIAGNOSES: Abdominal pain with nausea and vomiting. PROCEDURES PERFORMED: 1. EGD by Dr. Donnelly on 12/13. 2. Colonoscopy by Dr. Simon on 12/14 x2 sigmoid polypectomy's. HISTORY OF PRESENT ILLNESS: This is a 36-year-old male, who has had a long- standing history of epigastric abdominal pain, nausea, and vomiting. He has previously undergone a lesser sac hepatic cyst excision through an open operation. Initially he had improvement in his symptoms. However, he developed some worsening epigastric abdominal pain, nausea, and early satiety, which prompted his admission. We worried about possible peptic ulcer disease or some kind of postoperative complications. CT scan failed to show any fluid collections or recurrent masses. No evidence of bowel obstruction. He wanted an endoscopic workup that overall was unremarkable as well. We treated him with PPI, pain medicine, antiemetics and IV fluids. He did have bowel prep for his colonoscopy. We gave him Carafate and Reglan. Although none of these seemed to help initially by the end of his stay, he was feeling better. He was able to tolerate a diet. We felt that there were no obvious signs of acute pathology. I do worry that he has some form of gastroparesis that is contributing although he did not really have a lot of retained food in his stomach to suggest this. On the day of his discharge, he was feeling well. He is tolerating a soft diet. His bowels were working well and pain for the most part resolved. His incision was well healed with no evidence of hernia either clinically or on CT scan. He is felt safe for discharge. Follow up appointments will be with me in the next couple of weeks and Dr. Simon as discussed. I think Dr. Simon plans to continue working him up for gastroparesis. DISCHARGE DIET: Discussed GI soft diet. DISCHARGE MEDICATIONS: I encouraged him to avoid narcotic pain medication and NSAID's and to take Tylenol as needed for pain, and he will do this. He will otherwise continue his medications as previous. ACTIVITY: As tolerated. DISCHARGE INSTRUCTIONS: If he develops worsening nausea, vomiting, abdominal pain or fever, he will call and we will re-evaluate. cc: Deven Barr MD
== END 2016-12-15 17:25 | disposition home or self-care (01) ==
LOC: ED 15:19 → 4N 18:44
PROVIDERS: ADMIT Surgery; ATTEND Surgery

== ENCOUNTER 2018-08-20 14:34 | Inpatient (IN) ==
--- NOTE | 2018-08-20 15:02 | PROVIDER DOCUMENTATION ---
HPI-Abdominal Pain/GI Problem - General Chief Complaint: Vomiting Stated Complaint: VOMITING Time Seen by Provider: 08/20/18 14:56 Source: patient Allergies/Adverse Reactions: Patient Allergies Allergy/AdvReac Type Severity Reaction Status Date / Time No Known Allergies Allergy Verified 09/01/17 18:10 Home Medications: Home Medication List Medication Instructions Recorded Confirmed Last Taken Type Levetiracetam [Keppra] 1,500 mg PO BID 11/16/14 09/01/17 08/31/17 05:40 History Promethazine [Phenergan] 25 mg PO Q6H PRN PRN #20 tab 09/01/17 Unknown Rx Ondansetron Odt [Zofran 4 mg Odt] 4 mg PO Q6H PRN PRN #20 tab 08/20/18 Unknown Rx - History of Present Illness-ABD Nature of Presenting Problems: Patient is a 37yo M who presents w/ c/o abdominal pain (umbilical), nausea and vomiting x4 days. Patient reports he has not vomited today, but reports he has been dry heaving. Denies any diarrhea, fever/chills, dysuria, CP, or SOB. Abdominal Pain Onset Location: reports: periumbilical Pain Radiation: reports: LLQ Quality of Pain: reports: pressure Severity in ED: reports: moderate Onset/Duration: reports: 4 days ago Timing: reports: still present Activities at Onset: reports: none Exposure to sick contacts?: No Modifying Factors: improves with: nothing Associated Symptoms: reports: nausea, vomiting, weakness. denies: chest pain, diarrhea, dizziness, fever/chills, genitourinary problems, syncope Last BM: this afternoon Dark Stools Present?: reports: none noticed Rectal Bleeding: reports: none # of Diarrhea Episodes: 0 Rectal Pain: reports: none # of Vomiting Episodes: 12 (since Monday) Emesis Description: reports: clear, other (yellow bile) Bruising or Bleeding Gums?: No Similar Symptoms Previously?: No Recently seen or treated by another doctor?: No Review of Systems - Adult - REVIEW OF SYSTEMS - ADULT Constitutional: denies: chills, fever Eyes: reports: no symptoms reported Ears, Nose, Mouth & Throat: reports: no symptoms reported Cardiovascular: denies: chest pain, syncope Respiratory: denies: cough, shortness of breath Gastrointestinal: reports: see HPI, abdominal pain, nausea, poor appetite, vomiting. denies: diarrhea Genitourinary: denies: dysuria, frequency, urgency Musculoskeletal: reports: muscle weakness Integumentary: reports: no symptoms reported Neurological: denies: dizziness/vertigo, headache/migraines, tremors Psychiatric: reports: no symptoms reported Endocrine: reports: no symptoms reported All Other Systems: Reviewed and Negative Past History - Adult - PAST MEDICAL HISTORY-ADULT Review of Records: reports: Nursing Assessment Review, Medications Reviewed Major Childhood Illnesses: reports: denies history Cardiovascular: reports: denies history Respiratory: reports: denies history Gastrointestinal: reports: denies history Obstetrical/Gynecological: reports: denies history Genitourinary: reports: denies history Musculoskeletal: reports: chronic pain Neurological: reports: Seizures/Epilepsy Psychiatric: reports: depression Endocrine/Immune: reports: denies history Other Conditions: reports: denies history - PRIOR SURGERIES/PROCEDURES Surgical/Procedure History: reports: other (abdominal) - PRIOR HOSPITALIZATIONS Prior Hospitalizations: reports: for similar symptoms - IMMUNIZATION STATUS Childhood Immunizations: UTD Flu Vaccine: See Nurse Assessment - FAMILY HISTORY Family History: reviewed, not pertinent - SOCIAL HISTORY Smoking: cigarettes Provider spent 3-5 mins advising pt. on dangers of tobacco.: Discussed manners to quit use, and f/u contacts for add'l counseling. Physical Exam-General - PHYSICAL EXAM-ADULT Initial Vital Signs Reviewed: Yes - CONSTITUTIONAL General Appearance: alert, mild distress - EYES Eyes: PERRL/EOMI, pink conjunctivae - HEAD, EARS, NOSE, MOUTH & THROAT HENMT: normocephalic/atraumatic, moist mucous membranes - NECK Neck: full range of motion, supple, normal inspection - RESPIRATORY Respiratory: chest non-tender, lungs clear, normal breath sounds, no pleuratic chest pain, no respiratory distress, no accessory muscle use - CARDIOVASCULAR Cardiovascular: regular rate, rhythm, no gallop, no murmur - GASTROINTESTINAL (ABDOMEN) Abdominal Exam: normal bowel sounds, soft, no organomegaly, no pulsatile mass, tenderness (TTP periumbilical). negative: guarding, rigid, rebound, McBurney's point tenderness, Bender's sign - LYMPHATIC Lymphatic: no adenopathy - MUSCULOSKELETAL Back Exam: normal inspection Extremity: normal range of motion, non-tender - SKIN Integumentary: normal color, warm/dry - NEUROLOGIC Neurologic: grossly normal - PSYCHIATRIC Psych/Mental Status: normal mood/affect, normal thought content, normal thought process, oriented x 3 Progress - PLAN OF CARE/RESULTS Progress/Plan/Lab Results: Vital Signs - 8 hr 08/20/18 14:40 Temperature 99.1 F Pulse Rate 84 Respiratory Rate 18 Blood Pressure 107/76 O2 Sat by Pulse Oximetry 99 Orders Category Date Time Status Orthostatic Vital Signs NOW Care 08/20/18 15:02 Ordered Saline Loc NOW Care 08/20/18 15:02 Ordered CBC WITH ELECTRONIC DIFF [HEME] Stat Lab 08/20/18 14:55 Uncollected COMPREHENSIVE METABOLIC PANEL [CHEM] Stat Lab 08/20/18 14:55 Uncollected LIPASE [CHEM] Stat Lab 08/20/18 14:[address] W/POSS RFLX CULT [URINALYSIS] Stat Lab 08/20/18 14:59 Ordered Result Diagrams: 08/20/18 15:20 08/20/18 15:45 - CT/MRI 1 CT Study: Abdomen Impression: Abnormal CT Results: Enteritis versus partial or even early small bowel obstruction. - CHANGE OF SHIFT REPORT (ED Provider) 1 Report Given and Care Transferred to:: MIGDALIA Deutsch Time of Transfer: 16:48 Items Pending: CT/MRI Results Departure - Departure Date of Disposition Decision: 08/20/18 Time of Disposition Decision: 17:54 DIAGNOSIS: SBO (small bowel obstruction), Nausea & vomiting, Abdominal pain Disposition: ADMITTED INPATIENT 09 Certified Medical Emergency: Emergent Condition: Stable Prescriptions: Ondansetron Odt [Zofran 4 mg Odt] 4 mg PO Q6H PRN PRN #20 tab PRN Reason: Nausea Referrals and Follow-Ups: None,PCP [Primary Care Provider] - - Critical Care Note This patient required my direct & personal management of CC.: No Attestation - Physician/ DORYS Attestation Patient care was provided by Advanced Practice Provider:: Yes Advanced Practice Provider:: Shraddha Joya Advanced Practice Provider documentation review:: The Mid-level provider documentation, treatment plan and medical decision making was reviewed by the physician who agrees with all treatment and medical decision making by the [facility]. The physician spent face to face time with patient:: No Advanced Practice Provider documentation review:: Supervising physician onsite and consulted in the evaluation and care of this patient. The physician did not have a face to face encounter with the patient.
[2018-08-20] MEDS ORDERED: ZOFRAN IV ONE (15:06)
[2018-08-20 15:13] LABS: BILIRUBIN URINE NEGATIVE (NEGATIVE); BLOOD URINE 1+ (NEGATIVE); CLARITY SL. CLOUDY (CLEAR); COLOR YELLOW; GLUCOSE URINE NEGATIVE (NEGATIVE); KETONE URINE NEGATIVE (NEGATIVE); LEUKOCYTES URINE TRACE (NEGATIVE); NITRITE URINE NEGATIVE (NEGATIVE); PROTEIN URINE NEGATIVE (NEGATIVE); UROBILINOGEN URINE 4 mg/dL
[2018-08-20 15:23] LABS: URINE SOURCE CLEAN CATCH
[2018-08-20 15:25] LABS: URINE BACTERIA NEGATIVE /HFP; URINE CAST NONE SEEN /LPF; URINE CRYSTAL NONE SEEN /HPF; URINE EPITHELIAL CELLS <10 /HPF (<10); URINE RBC <10 /HPF (<10); URINE WBC <10 /HPF (<10); URINE YEAST NONE SEEN /HPF
[2018-08-20 15:40] LABS: BASO# 0.06 X1000 (0.0-0.2); BASO% 0.8 % (0.0-0.8); EOS# 0.29 X1000 (0.0-0.7); EOS% 4.1 % (0.0-10.0); HEMATOCRIT 48.3 % (42.0-52.0); HEMOGLOBIN 17.4 g/dL (14.0-18.0); IMM GRAN# 0.02 X1000 (0.0-0.04); IMM GRAN% 0.3 % (0.0-0.5); LYMPH# 2.33 X1000 (1.2-3.4); LYMPH% 32.6 % (20.5-51.1); MCH 31.8 PG (27-31); MCV 88.3 FL (81-99); MONO# 0.61 X1000 (0.11-0.59); MONO% 8.5 % (1.7-9.3); NEUT# 3.83 X1000 (1.4-6.5); NEUT% 53.7 % (42.2-75.2); PLT 268 X1000 (130-400); RBC 5.47 XMIL (4.7-6.1); RDW 13.9 % (11.5-14.5); WBC 7.14 X1000 (4.8-10.8)
[2018-08-20] MEDS ORDERED: NS 500 ML IV ONE (16:09)
[2018-08-20 16:16] LABS: AGAP 8; ALBUMIN 3.4 g/dL (3.5-5.0); ALKALINE PHOSPHATASE 36 U/L (32-122); BUN 4 mg/dL (8-22); CALCIUM 7.8 mg/dL (8.8-10.2); CHLORIDE 107 mmol/L (98-107); COSMO 277; CREATININE 0.6 mg/dL (0.7-1.2); ESTIMATED GFR > 60; GLUCOSE 82 mg/dL (70-104); GOT 14 U/L (10-34); GPT 7 U/L (10-44); LIPASE 27 U/L (13-60); POTASSIUM 4.1 mmol/L (3.5-5.1); SODIUM 141 mmol/L (136-145); TCO2 26 mmol/L (25-35); TOTAL PROTEIN 5.8 g/dL (6.3-8.3)
--- NOTE | 2018-08-20 17:38 | Diag Imaging Result Doc PS360 ---
EXAM: CT ABD/PELVIS W/IV CONT ONLY HISTORY: moderate umbilical abdominal pain vomiting TECHNIQUE: CT abdomen and pelvis with intravenous contrast COMPARISON: 09/01/2017 FINDINGS: No calcified gallstones or adjacent inflammation. Possible tiny hepatic cyst. Normal spleen, pancreas, adrenal glands, and kidneys. No hydronephrosis. Normal aorta. Normal appendix. No abscess. There are several small bowel loops which are mildly distended. The distal bowel loops are not distended. No ascites. Urinary bladder is moderately distended and is normal. Normal prostate. IMPRESSION: Enteritis versus partial or even early small bowel obstruction. This exam was performed using automated exposure control, adjustment of mA or kV according to patient size, and/or use of iterative reconstruction technique. Electronically signed by Pola Taveras 08/20/2018 5:36 PM
[2018-08-20] MEDS ORDERED: NS 1,000 ML IV ONE ×2 (18:53→20:39)
[2018-08-20] MEDS ORDERED: ZOFRAN IV PRN (20:35)
[2018-08-20] MEDS ORDERED: SODIUM CHLORIDE 0.9% INJ SCH (20:45)
[2018-08-21] MEDS: PROTONIX IV SCH ×2 (00:30→20:43)
--- NOTE | 2018-08-21 07:01 | Diag Imaging Result Doc PS360 ---
EXAM: ABDOMEN FLAT/UPRIGHT HISTORY: sbo TECHNIQUE: Flat and upright, two views COMPARISON: 09/01/2017 FINDINGS: No free air beneath the diaphragm. No organomegaly. No bowel obstruction. No abnormal abdominal calcifications. No foreign body. The urinary bladder is distended with contrast patient's recent CT. IMPRESSION: No acute abnormality. Electronically signed by Pola Taveras 08/21/2018 6:59 AM
[2018-08-21 07:53] LABS: BASO# 0.02 X1000 (0.0-0.2); BASO% 0.4 % (0.0-0.8); EOS% 3.5 % (0.0-10.0); HEMATOCRIT 43.1 % (42.0-52.0); IMM GRAN# 0.01 X1000 (0.0-0.04); IMM GRAN% 0.2 % (0.0-0.5); LYMPH# 2.07 X1000 (1.2-3.4); LYMPH% 36.6 % (20.5-51.1); MCH 31.3 PG (27-31); MCHC 34.8 g/dL (33-37); MCV 89.8 FL (81-99); MONO# 0.53 X1000 (0.11-0.59); MONO% 9.4 % (1.7-9.3); MPV 9.4 FL (7.4-10.4); NEUT# 2.83 X1000 (1.4-6.5); NEUT% 49.9 % (42.2-75.2); PLT 314 X1000 (130-400); RDW 13.4 % (11.5-14.5); WBC 5.66 X1000 (4.8-10.8)
[2018-08-21 08:15] LABS: AGAP 13; BUN 4 mg/dL (8-22); CALCIUM 7.9 mg/dL (8.8-10.2); CHLORIDE 106 mmol/L (98-107); COSMO 279; CREATININE 0.7 mg/dL (0.7-1.2); ESTIMATED GFR > 60; GLUCOSE 72 mg/dL (70-104); POTASSIUM 4.1 mmol/L (3.5-5.1); SODIUM 142 mmol/L (136-145); TCO2 23 mmol/L (25-35)
[2018-08-21] MEDS: DEMEROL IV PRN ×2 (09:07→17:04)
[2018-08-21] MEDS ORDERED: LEVAQUIN 750 MG/D5W 750 MG/150 ML IVPB IV SCH (10:00)
[2018-08-21] MEDS: FLAGYL 500 MG/NS 500 MG/100 ML IVPB IV SCH ×2 (11:01→18:22)
[2018-08-21] MEDS ORDERED: LACTULOSE PO ONE (11:32)
--- NOTE | 2018-08-21 12:34 | HISTORY AND PHYSICAL ---
PRIMARY CARE PHYSICIAN: No one. CHIEF COMPLAINT: Abdominal pain with hyperemesis. HISTORY OF PRESENT ILLNESS: Mr. 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 He had a normal bowel movement yesterday. He states he woke up around 4:00 this morning with some hot flashes. Otherwise no other complaint. He had imaging performed including an abdominopelvic CT which showed enteritis versus partial or early small bowel obstruction, but there is no obvious sign of small bowel obstruction at this time. He will be treated for enteritis of the colon, antiemetics for the nausea. We will advance him on clear liquids. Start him on something to help him have a bowel movement and monitor him one more night and make sure there are no progressive signs of a small bowel obstruction. PAST MEDICAL HISTORY: 1. Nocturnal seizure disorder but had one in the daytime in 2016 after his mother . 2. Chronic abdominal pain. 3. 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 4. GERD. PAST SURGICAL HISTORY: 1. Pyloric stenosis repaired as an infant. 2. Open resection of lymphatic cyst from the lesser sac of his abdomen. SOCIAL HISTORY: Left shoulder than half pack per day smoker for 20 plus years. Drinks beer and liquor about once every 2 weeks. Uses marijuana daily. FAMILY HISTORY: Mother had hypertension and end stage renal disease. Father's side of the family had hypertension, throat and lung cancer, stroke and coronary artery disease. ALLERGIES: No known drug allergies. HOME MEDICATIONS: None. REVIEW OF SYSTEMS: A 14-point review of systems are complete, and all were negative except for those mentioned in the above HPI. He did state that the nausea would get better when he would take showers or lie in the bathtub for long periods of time, which can go hand in hand with hyperemesis due to use of daily marijuana. PHYSICAL EXAMINATION: VITAL SIGNS: Temperature 98.1, heart rate 56, respiratory rate 16, blood pressure 109/60, O2 saturation is 97% on room air. GENERAL: Mr. Srinivas Flores is a 37-year-old male. He is in no acute distress. He is able to answer questions appropriately. HEENT: Atraumatic and normocephalic. Pupils are equal, round and reactive to light. Extraocular movements were intact. Mucous membranes are moist. NECK: Trachea midline. CARDIOVASCULAR: S1, S2. Regular rate and rhythm. No rubs, gallops or murmurs. No lower extremity edema. Plus 2 dorsalis and radial pulses. Negative JVD or carotid bruits. PULMONARY: Clear to auscultation with bilateral breath sounds. No accessory muscle use or work of breathing noted. GASTROINTESTINAL: Soft. Tender in epigastric region. Positive bowel sounds x4. EXTREMITIES: Moves all extremities equally with full range of motion. NEUROLOGICAL: Alert and oriented x3. Follows commands. Sensory is intact. SKIN: Warm, dry and intact. DIAGNOSTIC DATA: White blood cells 5000, hemoglobin 15, hematocrit 43, platelet count 314. Sodium is 142, potassium 4.1, BUN is 4, creatinine 0.7, glucose 72, calcium 7.9. IMAGING: Abdominopelvic CT with enteritis versus partial or even early small bowel obstruction. Abdominal x-ray with no acute abnormalities. ASSESSMENT AND PLAN: 1. Enteritis versus early or partial small bowel obstruction. There is no obvious sign of small bowel obstruction. His nausea is better. He is not having any more dry heaves. Last bowel movement was normal, and it was yesterday. He does want something to help him with the bowel movement, so we will give him some lactulose one time dose and start him on a clear liquid diet. He will be on Levaquin and Flagyl. We will monitor him one more night. If he does well, we will advance diet and let him go home soon. 2. Chronic abdominal pain. 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 3. Seizure disorder, mostly and primarily nocturnal. Last daytime seizure he had was in 2017. He is not on any medications for it. 4. Gastroesophageal reflux disease. We will start him on IV Protonix for now and probably transition him prior to discharge. 5. Tobacco abuse. Cessation discussed. No request for a nicotine patch. 6. DVT prophylaxis with SCDs. Dictated by MIGDALIA Nunez for Petar Pratt MD Addendum: Patient seen and examined by myself. Agree with MIGDALIA note. It reflects my assessment and plan. Patient is being admitted to hospital for what it looks like gastroenteritis. He is feeling much better. Abdominal X ray did not show any obstruction. Will start clear liquids diet and will go from there. cc: MIGDALIA Nunez MD [facility]
[2018-08-21] MEDS ORDERED: BENADRYL IV ONE (13:36)
[2018-08-22] MEDS: DEMEROL IV PRN ×2 (00:43→07:26)
[2018-08-22 06:29] LABS: BASO# 0.04 X1000 (0.0-0.2); BASO% 0.7 % (0.0-0.8); EOS# 0.24 X1000 (0.0-0.7); EOS% 4.3 % (0.0-10.0); HEMATOCRIT 41.9 % (42.0-52.0); HEMOGLOBIN 14.5 g/dL (14.0-18.0); LYMPH# 2.58 X1000 (1.2-3.4); LYMPH% 46.2 % (20.5-51.1); MCH 31.2 PG (27-31); MCHC 34.6 g/dL (33-37); MCV 90.1 FL (81-99); MONO# 0.53 X1000 (0.11-0.59); MONO% 9.5 % (1.7-9.3); NEUT# 2.19 X1000 (1.4-6.5); NEUT% 39.3 % (42.2-75.2); PLT 318 X1000 (130-400); RBC 4.65 XMIL (4.7-6.1); RDW 13.3 % (11.5-14.5); WBC 5.58 X1000 (4.8-10.8)
[2018-08-22 06:48] LABS: AGAP 7; BUN 5 mg/dL (8-22); CALCIUM 7.7 mg/dL (8.8-10.2); CHLORIDE 105 mmol/L (98-107); COSMO 279; CREATININE 0.8 mg/dL (0.7-1.2); ESTIMATED GFR > 60; GLUCOSE 79 mg/dL (70-104); SODIUM 142 mmol/L (136-145); TCO2 30 mmol/L (25-35)
[2018-08-22] MEDS ORDERED: NORCO-10 PO PRN (13:05)
--- NOTE | 2018-08-22 13:13 | Diag Imaging Result Doc PS360 ---
EXAM: ABDOMEN FLAT/UPRIGHT HISTORY: abdominal pain TECHNIQUE: Flat and upright, three views COMPARISON: 08/21/2018 FINDINGS: There is stool which remains throughout the colon. The colon is not dilated. Mild air distended loops of bowel in the right lower quadrant. No organomegaly. No foreign body. No abnormal calcifications. IMPRESSION: Mild constipation, but no definite bowel obstruction Electronically signed by Pola Taveras 08/22/2018 1:11 PM
[2018-08-22 14:16] VITALS: BP 105/56
--- NOTE | 2018-08-22 15:24 | DISCHARGE SUMMARY ---
ADMISSION DATE: 08/20/2018 DISCHARGE DATE: 08/22/2018 ADMISSION DIAGNOSES: 1. Enteritis versus early or partial small bowel obstruction. 2. Chronic abdominal pain. 3. Seizure disorder that is mostly nocturnal. 4. Gastroesophageal reflux disease . 5. Tobacco abuse. DISCHARGE DIAGNOSES: 1. Most consistent with gastroenteritis. No signs of small bowel obstruction. Tolerating oral intake. On Levaquin and Flagyl. 2. Chronic abdominal pain. Medication given. 3. Seizure disorder that is mostly primarily nocturnal. No seizures on this admit. 4. Gastroesophageal reflux disease . 5. Tobacco abuse. CONSULTATIONS: None. SURGERIES OR PROCEDURES: None. HOSPITAL COURSE: Mr. Srinivas Flores is a 37-year-old male with a medical history of chronic abdominal pain and GERD who presented the day of admission with 7 hours' worth of abdominal pain and hyperemesis on Monday and then on Monday he had dry heaves. Abdominal imaging revealed enteritis versus partial or early small bowel obstruction but he was able to tolerate taking a p.o. diet as it was advanced. He was treated for enteritis of the colon with Levaquin and Flagyl and improved during his admission. He was given lactulose and had 4 bowel movements despite the repeat abdominal x-ray showing mild constipation. DISCHARGE VITAL SIGNS: Temperature 98.6, heart rate 57, respiratory rate 16, blood pressure 105/56, and O2 saturation 100% on room air. LABORATORY DATA: White blood cells 5,000, hemoglobin 14, hematocrit 41, and platelet count 318. Sodium 142, potassium 4, BUN 5, creatinine 0.8, glucose 79, and calcium 7.7. IMAGING: Abdominopelvic CT on admit: Enteritis versus partial or early small bowel obstruction. Abdominal x-ray: No acute findings. Repeat abdominal x-ray: Just mild constipation. DISCHARGE MEDICATIONS: Talmo 10 mg one p.o. every 4 hours p.r.n.. DISCHARGE FOLLOW UPS: None. DISCHARGE INSTRUCTIONS: Diet: Regular. Activity: As tolerated. If your condition changes contact your physician and/or return to the Emergency Department. Changes may include but are not limited to shortness of breath, increased fatigue, excessive bleeding, unexplained weight loss or gain, unimaginable pain, signs or symptoms of infection. DISCHARGE DISPOSITION: Home. Dictated by MIGDALIA Nunez for Petar Pratt MD Addendum: Patient seen and examined by myself. Agree with MIGDALIA note. It reflects my assessment and plan. Patient is being discharged from hospital in stable condition. cc: MIGDALIA Nunez MD [facility]
== END 2018-08-22 14:35 | disposition home or self-care (01) | DRG 392 ==
LOC: P.ED 14:34 → SUATTDRO 18:36 → P.MEDSURG 18:36
PROVIDERS: ADMIT Internal Medicine; ATTEND Internal Medicine
CPT/HCPCS: 36415; 74019; 74020; 74177; 80048; 80053; 81001; 83690; 85025; 87040; 87088; 96361; 96374; 99285; A9270; C9113; J1200; J1956; J2175; J2405; J7030; J7040; Q9967; S0030; S0164